=== PATIENT | female | born 1975 | race Caucasian/White ===

== ENCOUNTER 2018-07-02 03:26 | Emergency (ER) | payer MEDICAID ==
[~2018-07-02] VITALS: Ht 165.1 cm; Wt 89.0 kg
[2018-07-02 05:26] VITALS: BP 136/74
== END 2018-07-02 04:50 | disposition left against medical advice (07) ==
LOC: ER 03:26
DX: Z53.21 Procedure and treatment not carried out due to patient leaving prior to being seen by health care provider (principal)